=== PATIENT | male | born 1985 | race Caucasian/White ===

== ENCOUNTER 2018-04-20 12:29 | Emergency (ER) | payer OTHER ==
[2018-04-20 12:43] VITALS: BP 119/75
[2018-04-20] MEDS ORDERED: Ibuprofen TAB* 600 MG PO ONE (13:05)
--- NOTE | 2018-04-20 13:19 | UC ---
Minor Trauma HPI - HPI Summary HPI Summary: The patient is a 32-year-old male who fell off a ladder at work today and presents here for evaluation of his injuries. He was no more than 8 feet up on a ladder when he shifted position to pick an apple. The weight of his apple basket shifted and pulled him off the ladder. Fall was broken by multiple limb says he fell to ground. He struck his left face and left shoulder on the ground. He states he may have lost consciousness for less than a second. He has mild nausea. He is denying any midline neck pain however his left trapezius is painful. He is complaining of severe pain over his left scapula as well as severe pain of the left humerus. He has severe pain if he attempts to lift his left arm. Initially the fall it knocked the wind out of him. He currently has no shortness of breath. He is denying any abdominal pain. He denies any injury to his hips pelvis or lower extremities. He states he has had multiple concussions in the past. - History of Current Complaint Chief Complaint: UCHeadInjury Stated Complaint: SHOULDER, BACK ,AND HEAD INJURY Time Seen by Provider: 04/20/18 12:46 Hx Obtained From: Patient Onset/Duration: Sudden Onset, Lasting Minutes Severity Initially: Severe Severity Currently: Moderate Pain Intensity: 8 Pain Scale Used: 0-10 Numeric Mechanism Of Injury: Fall From Height Of: - 8 feet Aggravating Factor(s): Movement Alleviating Factor(s): Rest Associated Signs And Symptoms: Positive: Loss Of Consciousness - possible Related History: Positive: Occupational Injury Body - Head: 1 - tender 2 - tender 3 - bilateral paraspinous muscle tenderness 4 - tender - Allergies/Home Medications Allergies/Adverse Reactions: Allergies Allergy/AdvReac Type Severity Reaction Status Date / Time No Known Allergies Allergy Verified 04/20/18 12:42 PMH/Surg Hx/FS Hx/Imm Hx Previously Healthy: Yes - Surgical History Surgical History: Yes Surgery Procedure, Year, and Place: removal of 2 melanomas. leg surgery ( shattered femur and hip) - Social History Alcohol Use: Weekly Alcohol Amount: twice a week - 6-12 beers Substance Use Type: None Smoking Status (MU): Current Some Day Smoker Type: Cigarettes Amount Used/How Often: 1 cig Length of Time of Smoking/Using Tobacco: 8 years Have You Smoked in the Last Year: Yes Household Exposure Type: Cigarettes Review of Systems Constitutional: Negative Skin: Negative Eyes: Negative ENT: Negative Respiratory: Negative Cardiovascular: Negative Gastrointestinal: Negative Genitourinary: Negative Motor: Negative Neurovascular: Negative Musculoskeletal: Arthralgia, Myalgia Neurological: Negative Psychological: Negative Is Patient Immunocompromised?: No All Other Systems Reviewed And Are Negative: Yes Physical Exam Triage Information Reviewed: Yes Appearance: Well-Appearing, No Pain Distress, Well-Nourished Vital Signs: Initial Vital Signs Temp 97.1 F 04/20/18 12:37 Pulse 60 04/20/18 12:37 Resp 18 04/20/18 12:37 BP 119/75 04/20/18 12:37 Pulse Ox 97 04/20/18 12:37 Vital Signs Reviewed: Yes Eyes: Positive: Conjunctiva Clear ENT: Positive: Hearing grossly normal, Uvula midline. Negative: Nasal congestion, Nasal drainage, Tonsillar swelling, Tonsillar exudate, Trismus, Muffled voice, Hoarse voice, Dental tenderness, Sinus tenderness Dental Exam: Normal - no loose teeth Neck: Positive: Supple, Nontender, No Lymphadenopathy Respiratory: Positive: Lungs clear, Normal breath sounds, No respiratory distress, No accessory muscle use Cardiovascular: Positive: RRR, No Murmur Abdomen Description: Positive: Nontender, No Organomegaly, Soft. Negative: CVA Tenderness (R), CVA Tenderness (L) Bowel Sounds: Positive: Present Musculoskeletal: Positive: ROM Limited @ - left shoulder (unable to abduct Neurological: Positive: Alert Psychological Exam: Normal Skin Exam: Normal Diagnostics - Radiology No standard instances Xray Interpretation: No Acute Changes - CXR/RIBS/L shoulder Radiology Interpretation Completed By: Radiologist Minor Trauma Course/Dx - Differential Dx/Diagnosis Provider Diagnoses: Left shoulder injury? rotator cuff tear. left trapezius strain. concussion. lumbar strain Discharge - Sign-Out/Discharge Documenting (check all that apply): Patient Departure All imaging exams completed and their final reports reviewed: Yes - Discharge Plan Condition: Stable Disposition: HOME Prescriptions: Ibuprofen TAB* [Motrin TAB*] 600 mg PO Q6H PRN #40 tab PRN Reason: Pain Patient Education Materials: Muscle Strain (ED), Rotator Cuff Injury (ED), Concussion (ED), Low Back Strain (ED), Rib Contusion (ED) Forms: *Work Release Referrals: Sam Ledezma MD [Medical Doctor] - ( for evaluation of your left shoulder ? rotator cuff tear) Additional Instructions: rest ice tylenol sling see orthopedist this week about your shoulder please recheck here this weekend for reevaluation of your back strain/ concussion and left trapezius strain recheck here for new symptoms - Billing Disposition and Condition Condition: STABLE Disposition: Home
--- NOTE | 2018-04-20 13:44 | RAD ---
INDICATION: Left rib injury. COMPARISON: Correlation is made with a prior chest x-ray study from November 08, 2016. TECHNIQUE: 2 views of the left ribs and dual-energy PA views of the chest were obtained. FINDINGS: No fracture or significant focal osseous abnormality is seen. The lungs are underinflated and grossly clear. No pleural effusion or pneumothorax is seen. The heart is within normal limits in size. IMPRESSION: NO EVIDENCE FOR FRACTURE.
--- NOTE | 2018-04-20 13:45 | RAD ---
Indication: Tender at the LEFT humerus and scapula following injury. Comparison: November 08, 2016 Technique: Internal rotation AP, external rotation Grashey, scapular Y, axillary views LEFT shoulder REPORT AND IMPRESSION: #. Negative for fracture. Normal acromioclavicular and glenohumeral joint alignment. Minimal inferior acromial bone spur. Unremarkable soft tissue contours.
== END 2018-04-20 14:10 | disposition home or self-care (01) ==
LOC: UCEAST 12:29
CPT/HCPCS: 99213; A9270-GY; G0463

== ENCOUNTER 2018-06-29 14:05 | Emergency (ER) | payer SELFPAY ==
--- OUTSIDE RECORDS SUMMARY | 2018-06-29 14:52 | XMS REPORT ---
:1985 External Reference #:[id number] Author Organization [facility] Address [address] [place] [address] Phone [phone] Care Team Providers Name Role Phone Gerber Leong MD Primary Care Physician Unavailable Payers Type Date Identification Numbers Payment Provider Subscriber Workers Compensation Onset: Policy Number: State Insurance Vito Talbot 2018 [id number] Fund PayID: [id number] [place], [place] [address] Problems Description No Information Family History Date Family Member(s) Problem(s) Comments General Heart Disease General Hypertension General Stroke General Cancer Social History Type Date Description Comments Lives With Alone Occupation [employer] ETOH Use Denies alcohol use Smoking Patient has never smoked Exercise Type/Frequency occasionally Allergies, Adverse Reactions, Alerts Date Description Reaction Status Severity Comments 05/05/2018 NKDA active Medications Medication Date Status Form Strength Qnty SIG Indications Ordering Provider Medrol Active TBPK 4mg 1pak take as Chu Berkowitz 018 directed per MD Cheli dosepak instructions No Active Hx Unknown Medications 018 - 018 Vital Signs Date Vital Result Comment 06/02/2018 Heart Rate 84 /min BP Systolic 128 mmHg BP Diastolic 82 mmHg Respiratory Rate 16 /min Pain Level 5 05/05/2018 Height 67 inches 5'7" Weight 168.00 lb Heart Rate 68 /min BP Systolic 120 mmHg BP Diastolic 88 mmHg Body Temperature 97.5 F Pain Level 6 BMI (Body Mass Index) 26.3 kg/m2 Results Description No Information Procedures Description No Information Encounters Type Date Location Provider CPT E/M Dx Office Visit 05/05/2018 [facility] Bower [address] M25.512 2:15p [facility] S46.012A W14.xxxA M25.512 Plan of Care Future Appointment(s):07/02/2018 2:00 pm - Chu Bower MD at [facility]06/02/2018 - Chu Bower, MDM25.512 Pain in left shoulderNew Therapy:Physical TherapyFollow up:Follow up: 4 hicnfP68.012D Contusion of left shoulder, subsequent encounter
[2018-06-29 15:37] LABS: ABS Basophils 0 10^3/ul (0-0.2); ABS Eosinophils 0.1 10^3/ul (0-0.6); ABS Lymphocytes 2.1 10^3/ul (1.0-4.8); ABS Monocytes 0.7 10^3/ul (0-0.8); ABS Neutrophils 5.4 10^3/ul (1.5-7.7); ABS Nucleated RBC 0 10^3/ul; Eosinophil % 1.4 %; Hematocrit 43 % (42-52); Hemoglobin 14.4 g/dl (14.0-18.0); Lymphocyte % 25.3 %; Mean Corpuscular HGB Conc 34 g/dl (31-36); Mean Corpuscular Hemoglobin 31 pg (27-31); Mean Corpuscular Volume 92 fL (80-94); Mean Platelet Volume 8.2 fL (7.4-10.4); Nucleated Red Blood Cells % 0.1; Platelet Count 291 10^3/ul (150-450); Red Blood Count 4.63 10^6/ul (4.00-5.40); Red Cell Distribution Width 13 % (10.5-15); White Blood Count 8.4 10^3/ul (3.5-10.8)
[2018-06-29 15:53] LABS: EGFR Non-African American 83.6 (>60)
--- NOTE | 2018-06-29 16:54 | ED ---
HPI Chest Pain - HPI Summary HPI Summary: Patient is a 32-year-old male presenting to the ED with a 2 day history of chest pressure to the midsternal region which is nonradiating. He is also endorsing SOB which is worse with exertion. He has never had anything like this before. Denies any cardiac history. Patient endorses smoking history and recent increased alcohol intake. Denies any PMH of cardiac issues, endorses family history of grandmother on mother's passing away from an PR at age 50s. He states he is otherwise healthy. He denies any chest congestion, cough, urinary symptoms, back pain, sinus tenderness or headache. He states this was a gradual onset. He denies any bilateral arm pain, numbness or tingling. He denies any fevers, sweats, chills. He does however endorses recent illness of a cough and congestion, but this has resolved. He has not taken anything over- the-counter for relief. - History of Current Complaint Chief Complaint: EDChestWallPain Time Seen by Provider: 06/29/18 14:24 Hx Obtained From: Patient Onset/Duration: Started Days Ago Timing: Constant Initial Severity: Moderate Current Severity: Moderate Pain Intensity: 6 Pain Scale Used: 0-10 Numeric Chest Pain Location: Mid Sternal Chest Pain Radiates: No Character: Dull/Aching Aggravating Factor(s): Exertion Alleviating Factor(s): Rest Associated Signs and Symptoms: Positive: Negative - Risk Factors Pulmonary Embolism Risk Factors: Previous PE, Smoking TAD Risk Factors: Smoking AMI/ACS Risk Factors: Smoking - Allergy/Home Medications Allergies/Adverse Reactions: Allergies Allergy/AdvReac Type Severity Reaction Status Date / Time No Known Allergies Allergy Verified 05/12/18 09:57 PMH/Surg Hx/FS Hx/Imm Hx Previously Healthy: Yes Endocrine/Hematology History: Denies: Hx Diabetes, Hx Thyroid Disease Cardiovascular History: Reports: Hx Hypertension - NOT TAKING HIS PRESCRIBED MEDS Denies: Hx Pacemaker/ICD Respiratory History: Denies: Hx Asthma, Hx Chronic Obstructive Pulmonary Disease (COPD) GI History: Denies: Hx Ulcer Sensory History: Denies: Hx Hearing Aid Psychiatric History: Denies: Hx Panic Disorder - Cancer History Cancer Type, 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 leg surgery ( shattered femur and hip). HERNIA REPAIR - Immunization History Hx Pertussis Vaccination: No Immunizations Up to Date: Yes Infectious Disease History: No Infectious Disease History: Denies: Hx Hepatitis, Hx Human Immunodeficiency Virus (HIV), Traveled Outside the [place] in Last 30 Days - Social History Occupation: Employed Full-time Lives: With Family Alcohol Use: Weekly Alcohol Amount: twice a week - 6-12 beers Hx Substance Use: No Substance Use Type: Reports: None Hx Tobacco Use: Yes Smoking Status (MU): Current Some Day Smoker Type: Cigarettes Amount Used/How Often: 1 cig Length of Time of Smoking/Using Tobacco: 8 years Have You Smoked in the Last Year: Yes Review of Systems Negative: Fever, Chills, Fatigue, Skin Diaphoresis Positive: Chest Pain. Negative: Palpitations Positive: Shortness Of Breath. Negative: Cough Negative: Abdominal Pain, Vomiting, Diarrhea Genitourinary: Negative Positive: no symptoms reported, see HPI Negative: Arthralgia, Myalgia Skin: Negative Neurological: Negative All Other Systems Reviewed And Are Negative: Yes Physical Exam Triage Information Reviewed: Yes Vital Signs On Initial Exam: Initial Vitals Temp Pulse Resp BP Pulse Ox 98.2 F 89 18 123/86 97 06/29/18 14:12 06/29/18 14:12 06/29/18 14:12 06/29/18 14:12 06/29/18 14:12 Vital Signs Reviewed: Yes Appearance: Positive: Well-Appearing, Well-Nourished Skin: Positive: Warm, Skin Color Reflects Adequate Perfusion Head/Face: Positive: Normal Head/Face Inspection Eyes: Positive: EOMI, JUDE, Conjunctiva Clear Neck: Positive: Supple, No Lymphadenopathy Respiratory/Lung Sounds: Positive: Clear to Auscultation, Breath Sounds Present Cardiovascular: Positive: RRR, Pulses are Symmetrical in both Upper and Lower Extremities Musculoskeletal: Positive: Normal, Strength/ROM Intact Neurological: Positive: Speech Normal Psychiatric: Positive: Normal, Affect/Mood Appropriate AVPU Assessment: Alert Diagnostics - Vital Signs Vital Signs Temp Pulse Resp BP Pulse Ox 06/29/18 15:02 83 14 132/95 97 06/29/18 15:00 82 23 97 06/29/18 14:31 81 17 144/77 97 06/29/18 14:12 98.2 F 89 18 123/86 97 - Laboratory Lab Results: Lab Results 06/29/18 06/29/18 06/29/18 Range/Units 15:18 15:18 15:18 WBC 8.4 (3.5-10.8) 10^3/ul RBC 4.63 (4.00-5.40) 10^6/ul Hgb 14.4 (14.0-18.0) g/dl Hct 43 (42-52) % MCV 92 (80-94) fL MCH 31 (27-31) pg MCHC 34 (31-36) g/dl RDW 13 (10.5-15) % Plt Count 291 (150-450) 10^3/ul MPV 8.2 (7.4-10.4) fL Neut % (Auto) 64.7 % Lymph % (Auto) 25.3 % [place] % (Auto) 8.3 % Eos % (Auto) 1.4 % Baso % (Auto) 0.3 % Absolute Neuts (auto) 5.4 (1.5-7.7) 10^3/ul Absolute Lymphs (auto) 2.1 (1.0-4.8) 10^3/ul Absolute Monos (auto) 0.7 (0-0.8) 10^3/ul Absolute Eos (auto) 0.1 (0-0.6) 10^3/ul Absolute Basos (auto) 0 (0-0.2) 10^3/ul Absolute Nucleated RBC 0 10^3/ul Nucleated RBC % 0.1 Sodium 139 (135-145) mmol/L Potassium 4.4 (3.5-5.0) mmol/L Chloride 106 (101-111) mmol/L Carbon Dioxide 29 (22-32) mmol/L Anion Gap 4 (2-11) mmol/L BUN 13 (6-24) mg/dL Creatinine 1.02 (0.67-1.17) mg/dL Est GFR ( Amer) 101.2 (>60) Est GFR (Non-Af Amer) 83.6 (>60) BUN/Creatinine Ratio 12.7 (8-20) Glucose 92 (70-100) mg/dL Lactic Acid 1.4 (0.5-2.0) mmol/L Calcium 8.9 (8.6-10.3) mg/dL Magnesium 1.7 L (1.9-2.7) mg/dL Total Bilirubin 0.30 (0.2-1.0) mg/dL AST 47 H (13-39) U/L ALT 62 H (7-52) U/L Alkaline Phosphatase 68 (34-104) U/L CK-MB (CK-2) 1.0 (0.6-6.3) ng/mL Troponin I 0.00 (<0.04) ng/mL Total Protein 6.0 L (6.4-8.9) g/dL Albumin 3.8 (3.2-5.2) g/dL Globulin 2.2 (2-4) g/dL Albumin/Globulin Ratio 1.7 (1-3) Result Diagrams: 06/29/18 15:18 06/29/18 15:18 Lab Statement: Any lab studies that have been ordered have been reviewed, and results considered in the medical decision making process. Chest Pain Course/Dx - Course Course Of Treatment: On arrival, patient's vital signs are stable. On physical examination, patient is nondiaphoretic, nontoxic in appearing and appears well. He does have a history of anxiety and states he is fairly anxious when coming to hospitals. Lungs CTA. RRR. Chest x-ray obtained which shows slightly lower lung volumes than normal. He will follow up with PCP/[facility] if symptoms continue or worsen, but likely this is secondary to patient decreased work of breathing deep d/t discomfort. D-dimer negative. - Chest Pain Differential Diagnosis/HQI/PQRI: Chest Wall, Pulmonary Embolism - Diagnoses Provider Diagnoses: Atypical chest pain, Shortness of breath Discharge - Sign-Out/Discharge Documenting (check all that apply): Patient Departure - Discharge Plan Condition: Stable Disposition: HOME Patient Education Materials: Chest Pain (ED) Forms: *Work Release Referrals: Gerber Leong MD [Primary Care Provider] - Additional Instructions: Ibpurofen 600mg three times daily Rest If you develop any worsening symptoms, return to the ED Do not drink or smoke until you feel better - do not smoke anyway! - Billing Disposition and Condition Condition: STABLE Disposition: Home
[2018-06-29 17:16] VITALS: BP 136/66
== END 2018-06-29 17:15 | disposition home or self-care (01) ==
LOC: ED 14:05
DX: R07.89 Other chest pain (principal); R06.02 Shortness of breath; F17.210 Nicotine dependence, cigarettes, uncomplicated; I10 Essential (primary) hypertension; Z85.820 Personal history of malignant melanoma of skin; Z82.49 Family history of ischemic heart disease and other diseases of the circulatory system
CPT/HCPCS: 36415; 71046; 80053; 82553; 83605; 83735; 84484; 85025; 85379; 93005; 99282

== ENCOUNTER 2018-12-12 14:11 | Emergency (ER) | payer SELFPAY ==
[2018-12-12] MEDS ORDERED: HYDROcodone/ACETAMIN 5-325 MG* 1 TAB PO ONE (14:57)
--- NOTE | 2018-12-12 14:57 | UC ---
Lower Extremity/Ankle HPI - HPI Summary HPI Summary: about 2 weeks ago twisted right ankle on a log---[facility]--Pain continues in top of right foot just proximal to 2/3 metatarsal --pain has kept him awake for the past 4 nights-foot remained swollen - History of Current Complaint Chief Complaint: UCLowerExtremity Stated Complaint: LEG PAIN Time Seen by Provider: 12/12/18 14:40 Hx Obtained From: Patient Onset/Duration: Sudden Onset, Lasting Weeks - 2, Still Present Severity Initially: Moderate Severity Currently: Moderate Pain Intensity: 8 Pain Scale Used: 0-10 Numeric Aggravating Factor(s): Standing, Ambulation Alleviating Factor(s): Nothing Able to Bear Weight: Yes - Allergies/Home Medications Allergies/Adverse Reactions: Allergies Allergy/AdvReac Type Severity Reaction Status Date / Time No Known Allergies Allergy Verified 12/12/18 14:30 Home Medications: Home Medications Acetaminophen 3 tab PO ONCE PRN 12/12/18 [History Confirmed 12/12/18] Cholecalciferol TAB* [Vitamin D TAB*] 1,000 unit PO DAILY 12/12/18 [History Confirmed 12/12/18] Multivitamin [Multivitamins] 1 cap PO DAILY 12/12/18 [History Confirmed 12/12/18 ] PMH/Surg Hx/FS Hx/Imm Hx Previously Healthy: Yes - Surgical History Surgical History: Yes Surgery Procedure, Year, and Place: removal of 2 melanomas. right leg surgery ( shattered femur and hip). HERNIA REPAIR - right - Family History Known Family History: Negative: Hypertension - Social History Lives: With Family Alcohol Use: None Alcohol Amount: twice a week - 6-12 beers Substance Use Type: None Smoking Status (MU): Current Some Day Smoker Type: Cigarettes Amount Used/How Often: 1 cig Length of Time of Smoking/Using Tobacco: 8 years Have You Smoked in the Last Year: Yes Household Exposure Type: Cigarettes Review of Systems All Other Systems Reviewed And Are Negative: Yes Constitutional: Positive: Negative Skin: Positive: Bruising - right foot Eyes: Positive: Negative ENT: Positive: Negative Respiratory: Positive: Negative Cardiovascular: Positive: Negative Gastrointestinal: Positive: Negative Genitourinary: Positive: Negative Motor: Positive: Negative Musculoskeletal: Positive: Arthralgia - mid right foot, Edema - right foot Neurological: Positive: Negative Psychological: Positive: Negative Is Patient Immunocompromised?: No Physical Exam Triage Information Reviewed: Yes Appearance: Well-Appearing, Well-Nourished, Pain Distress Vital Signs: Initial Vital Signs Temp 97.5 F 12/12/18 14:25 Pulse 73 12/12/18 14:25 Resp 14 12/12/18 14:25 BP 122/71 12/12/18 14:25 Pulse Ox 98 12/12/18 14:25 Vital Signs Reviewed: Yes Eye Exam: Normal Eyes: Positive: Conjunctiva Clear ENT Exam: Normal ENT: Positive: Normal ENT inspection, Hearing grossly normal. Negative: Trismus , Muffled voice, Hoarse voice Dental Exam: Normal Neck exam: Normal Neck: Positive: Supple, Nontender, No Lymphadenopathy Respiratory Exam: Normal Respiratory: Positive: Chest non-tender, No respiratory distress, No accessory muscle use Cardiovascular Exam: Normal Cardiovascular: Positive: RRR, No Murmur, Pulses Normal, Brisk Capillary Refill Musculoskeletal Exam: Other - right foot Musculoskeletal: Positive: ROM Limited @, Edema @ Neurological Exam: Normal Neurological: Positive: Alert, Muscle Tone Normal Psychological Exam: Normal Psychological: Positive: Normal Response To Family Skin Exam: Normal Diagnostics - Radiology No standard instances Radiology Interpretation Completed By: Radiologist Summary of Radiographic Findings: lateral cuneiform non displaced fx right foot Lower Extremity Course/Dx - Course Course Of Treatment: rice, pain control, crutches, cam boot,follow with orthopedic doctor this week - Differential Dx/Diagnosis Provider Diagnosis: Fx cuneiform, foot-closed Discharge - Sign-Out/Discharge Documenting (check all that apply): Patient Departure All imaging exams completed and their final reports reviewed: Yes - Discharge Plan Condition: Stable Disposition: HOME Prescriptions: Hydrocodone/Acetaminophen [Hydrocodone-Acetamin 5-325 mg] 1 each PO Q6HR PRN # 10 tablet MDD 4 PRN Reason: Pain - Unrelieved Ibuprofen [Ibu] 800 mg PO Q8HR PRN #40 tablet PRN Reason: Pain Patient Education Materials: Crutch Instructions (ED), Foot Fracture in Adults (ED), R.I.C.E. Treatment (ED) Referrals: Sam Schwartz MD [Medical Doctor] - 2 Days - Billing Disposition and Condition Condition: STABLE Disposition: Home
[2018-12-12 16:37] VITALS: BP 128/81
== END 2018-12-12 16:59 | disposition home or self-care (01) ==
LOC: UCEAST 14:11
DX: S99.921A Unspecified injury of right foot, initial encounter (principal); S90.31XA Contusion of right foot, initial encounter; X50.1XXA Overexertion from prolonged static or awkward postures, initial encounter; Y92.9 Unspecified place or not applicable; Z72.0 Tobacco use
CPT/HCPCS: 99213; G0463

== ENCOUNTER 2019-01-11 17:18 | Emergency (ER) | payer OTHER ==
--- OUTSIDE RECORDS SUMMARY | 2019-01-11 17:33 | XMS REPORT | Continuity of Care Document ---
:1985 External Reference #:[id number] Author Name Mariana Burton Care Team Providers Name Role Phone Gerber Leong MD Primary Care Physician Unavailable Payers Date Identification Numbers Payment Provider Subscriber Onset: 2018 Policy Number: [id number] State Insurance Fund Vito Talbot [place]: [id number] [place] [address] Policy Number: [id number] Va/ Non Va Care Vito Talbot PayID: [id number] [address] [address] [place] [address] Family History Date Family Member(s) Observation Comments General Heart Disease General Hypertension General Stroke General Cancer Social History Type Date Description Comments Sex Unknown Lives With Alone Occupation [employer] ETOH Use Denies alcohol use Tobacco Use Start: Unknown Patient has never smoked Smoking Status Reviewed: 05/05/18 Patient has never smoked Exercise Type/Frequency occasionally Allergies, Adverse Reactions, Alerts Description No Known Drug Allergies Medications Active Medications SIG Qnty Indications Ordering Provider Date Tramadol HCL 1 tablets every 14tabs S86.111A Oswaldo Cash MD 12/25/2018 50mg 12 hours as Tablets needed History Medications No Active Medications Unknown 12/25/2018 - 12/25/2018 Medrol take as directed per 1pfeliberto Berkowitz 06/02/2018 - 4mg TBPK dosepak karolyn Bower MD 12/24/2018 No Active Medications Unknown 05/05/2018 - 06/02/2018 Vital Signs Date Vital Result Comment 12/25/2018 3:17pm Height 67 inches 5'7" Weight 170.00 lb Heart Rate 100 /min BP Systolic 124 mmHg BP Diastolic 80 mmHg Respiratory Rate 16 /min Body Temperature 98.4 F Pain Level 8 BMI (Body Mass Index) 26.6 kg/m2 06/02/2018 1:46pm Heart Rate 84 /min BP Systolic 128 mmHg BP Diastolic 82 mmHg Respiratory Rate 16 /min Pain Level 5 05/05/2018 2:21pm Height 67 inches 5'7" Weight 168.00 lb Heart Rate 68 /min BP Systolic 120 mmHg BP Diastolic 88 mmHg Body Temperature 97.5 F Pain Level 6 BMI (Body Mass Index) 26.3 kg/m2 Encounters Type Date Location Provider Dx Diagnosis Office Visit 06/02/2018 [facility] Chu Berkowitz M25.512 Pain in left 2:00p [facility] MD shoulder S40.012D Contusion of left shoulder, subsequent encounter M25.512 Pain in left shoulder Office Visit 05/05/2018 2:15p [facility]opedic Chu Berkowitz M25.512 Pain in left Services Of MD Cheli shoulder [facility] S46.012A Strain of musc/tend the rotator cuff of left shoulder, init W14.xxxA Fall from tree, initial encounter M25.512 Pain in left shoulder Plan of Treatment 12/25/2018 - Oswaldo Cash, MDS86.111A Strain of other muscle(s) and tendon(s) of posterior muscleNew Medication:Tramadol HCL 50 mg - 1 tablets every 12 hours as neededFollow up:after testing / imaging is completed
--- OUTSIDE RECORDS SUMMARY | 2019-01-11 17:33 | XMS REPORT | Continuity of Care Document ---
:1985 External Reference #:[id number] Author Name Mariana Burton Care Team Providers Name Role Phone Gerber Leong MD Primary Care Physician Unavailable Payers Date Identification Numbers Payment Provider Subscriber Effective: 2018 Policy Number: [id number] Va/ Non Va Care Vito Talbot Expires: 2019 PayID: [id number] [address] [address] [place] [address] Onset: 2018 Policy Number: [id number] [facility] Insurance Fund Vito Talbot PayID: [id number] [place] [address] Problems Active Problems Provider Date Other specified congenital deformities of feet Oswaldo Cash MD Onset: 01/04 Complex regional pain syndrome type I of right Oswaldo Cash MD Onset: 01/04 lower limb Family History Date Family Member(s) Observation Comments General Heart Disease General Hypertension General Stroke General Cancer Social History Type Date Description Comments Sex Unknown Lives With Alone Occupation [employer] ETOH Use Denies alcohol use Tobacco Use Start: Unknown Patient has never smoked Smoking Status Reviewed: 01/04/19 Patient has never smoked Exercise Type/Frequency occasionally Allergies, Adverse Reactions, Alerts Description No Known Drug Allergies Medications Active Medications SIG Qnty Indications Ordering Provider Date Gabapentin 1 tablet by mouth 60caps Oswaldo Cash MD 01/04/2019 300mg qd x 2 weeks. Capsules Increase to 2 qd if pain is not improving. Tramadol HCL 1 tablets every 30tabs S86.111A Oswaldo Cash MD 12/25/2018 50mg 12 hours as Tablets needed History Medications No Active Medications Unknown 12/25/2018 - 12/25/2018 Medrol take as directed per hiral Berkowitz 06/02/2018 - 4mg TBPK dosepak instructions MD Cheli 12/24/2018 No Active Medications Unknown 05/05/2018 - 06/02/2018 Vital Signs Date Vital Result Comment 01/04/2019 1:40pm Height 67 inches 5'7" Weight 170.00 lb Heart Rate 98 /min Respiratory Rate 16 /min Body Temperature 95.1 F Pain Level 8 BMI (Body Mass Index) 26.6 kg/m2 12/25/2018 3:17pm Height 67 inches 5'7" Weight [...] in left Services Of MD Cheli shoulder C.M.A. S46.012A Strain of musc/tend the rotator cuff of left shoulder, init W14.xxxA Fall from tree, initial encounter M25.512 Pain in left shoulder Plan of Treatment Future Appointment(s):02/01/2019 10:00 am - Oswaldo Cash MD at [facility]01/04/2019 - Oswaldo Cash MDQ66.89 Other specified congenital deformities of feetG90.521 Complex regional pain syndrome I of right lower limbNew Therapy:Physical TherapyFollow up:Follow Up: 4 weeks
--- NOTE | 2019-01-11 20:39 | ED ---
Lower Extremity - HPI Summary HPI Summary: 33-year-old male presents with right foot swelling since yesterday. He states that he has a fracture to his foot diagnosed a month ago. He states that he is not really suppose to be walking that much and yesterday he walked on it and also swam. He knows increased swelling and some black and blue to his foot yesterday that has resolved. He's noticed increased swelling. He is also has swelling and pain into his leg on the right side. He denies any history of blood clots. Is not a smoker. No chest pain or shortness breath. No new injury. - History of Current Complaint Chief Complaint: EDExtremityLower Stated Complaint: POSSIBLE EDEMA PER PT Time Seen by Provider: 01/11/19 18:12 Pain Intensity: 7 - Allergies/Home Medications Allergies/Adverse Reactions: Allergies Allergy/AdvReac Type Severity Reaction Status Date / Time No Known Allergies Allergy Verified 12/31/18 14:35 PMH/Surg Hx/FS Hx/Imm Hx Endocrine/Hematology History: Denies: Hx Diabetes, Hx Thyroid Disease Cardiovascular History: Reports: Hx Hypertension Denies: Hx Pacemaker/ICD Respiratory History: Denies: Hx Asthma, Hx Chronic Obstructive Pulmonary Disease (COPD) GI History: Denies: Hx Ulcer History: Denies: Hx Dialysis, Hx Renal Disease Sensory History: Denies: Hx Hearing Aid Psychiatric History: Reports: Hx Anxiety, Hx Depression Denies: Hx Panic Disorder - Cancer History Cancer Type, Location and Year: melanoma x 2 - removed surgically, no treatment needed - Surgical History Surgery Procedure, Year, and Place: removal of 2 melanomas. right leg surgery ( shattered femur and hip) W/ [facility] (HIP TO KNEE). HERNIA REPAIR - right Infectious Disease History: No Infectious Disease History: Denies: Hx Hepatitis, Hx Human Immunodeficiency Virus (HIV), Traveled Outside the [place] in Last 30 Days - Family History Known Family History: Negative: Hypertension - Social History Alcohol Use: None Alcohol Amount: twice a week - 6-12 beers Hx Substance Use: No Substance Use Type: Reports: None Hx Tobacco Use: Yes Smoking Status (MU): Current Some Day Smoker Type: Cigarettes Amount Used/How Often: 1 cig Length of Time of Smoking/Using Tobacco: 8 years Have You Smoked in the Last Year: Yes Review of Systems Negative: Fever Negative: Chest Pain Negative: Shortness Of Breath Positive: Myalgia - right foot and calf pain, Edema All Other Systems Reviewed And Are Negative: Yes Physical Exam Triage Information Reviewed: Yes Vital Signs On Initial Exam: Initial Vitals Temp Pulse Resp BP Pulse Ox 99.1 F 94 18 125/89 97 01/11/19 17:22 01/11/19 17:22 01/11/19 17:22 01/11/19 17:22 01/11/19 17:22 Vital Signs Reviewed: Yes Appearance: Positive: Well-Appearing Skin: Positive: Warm, Dry Head/Face: Positive: Normal Head/Face Inspection Eyes: Positive: Normal, Conjunctiva Clear ENT: Positive: Pharynx normal Respiratory/Lung Sounds: Positive: Clear to Auscultation, Breath Sounds Present Cardiovascular: Positive: Normal, RRR Musculoskeletal: Positive: Strength/ROM Intact - right foot, Edema Right - foot , Other - good pulses, tenderness right calf, capillary refill<2 secs Neurological: Positive: Normal Psychiatric: Positive: Normal Diagnostics - Vital Signs Vital Signs Temp Pulse Resp BP Pulse Ox 01/11/19 17:22 99.1 F 94 18 125/89 97 - Laboratory Lab Statement: Any lab studies that have been ordered have been reviewed, and results considered in the medical decision making process. - Ultrasound No standard instances Ultrasound Interpretation Completed By: Radiologist Summary of Ultrasound Findings: IMPRESSION: No right extremity deep vein thrombosis. Lower Extremity Course/Dx - Course Course Of Treatment: 33-year-old male presents with right foot swelling since yesterday. He states that he has a fracture to his foot diagnosed a month ago. He states that he is not really suppose to be walking that much and yesterday he walked on it and also swam. He knows increased swelling and some black and blue to his foot yesterday that has resolved. He's noticed increased swelling. He is also has swelling and pain into his leg on the right side. He denies any history of blood clots. Is not a smoker. No chest pain or shortness breath. No new injury. On exam has edema noted to right foot. Neurovascular intact. Ultrasound negative for DVT. Told to ice and elevate and follow-up with orthopedic. Patient understands agrees plan. - Diagnoses Differential Diagnosis/HQI/PQRI: Positive: Contusion, Fracture (Closed), Sprain Provider Diagnoses: Edema of right foot Discharge - Sign-Out/Discharge Documenting (check all that apply): Patient Departure Patient Received Moderate/Deep Sedation with Procedure: No - Discharge Plan Condition: Good Disposition: HOME Patient Education Materials: R.I.C.E. Treatment (ED) Referrals: Gerber Leong MD [Primary Care Provider] - Additional Instructions: Take Tylenol or ibuprofen every 6 hours as needed for pain Apply ice, rest, elevate keep boot on area Follow up with ortho Return to ED if develop any new or worsening symptoms - Billing Disposition and Condition Condition: GOOD Disposition: Home
[2019-01-11 20:59] VITALS: BP 147/86
== END 2019-01-11 20:58 | disposition home or self-care (01) ==
LOC: ED 17:18
DX: R60.0 Localized edema (principal); Z72.0 Tobacco use
CPT/HCPCS: 99282

== ENCOUNTER 2019-05-13 09:18 | Emergency (ER) | payer OTHER ==
--- OUTSIDE RECORDS SUMMARY | 2019-05-13 09:24 | XMS REPORT | Continuity of Care Document ---
:1985 External Reference #:[id number] Author Name Oswaldo Cash MD (transmitted by agent of provider Mariana Burton) Address [address] [place] [id number] Care Team Providers Name Role Phone Gerber Leong MD - Emergency Care Team Information Medical Accounting Clerk [phone] Medicine Problems Active Problems Provider Date Other synovitis and tenosynovitis, right ankle Oswaldo Cash MD Onset: 03/16 and foot Other specified congenital deformities of feet Oswaldo Cash MD Onset: 01/04 Complex regional pain syndrome type I of right Oswaldo Cash MD Onset: 01/04 lower limb Social History Type Date Description Comments Sex Unknown ETOH Use Denies alcohol use Tobacco Use Start: Unknown Patient has never smoked Smoking Status Reviewed: 03/16/19 Patient has never smoked Exercise Type/Frequency occasionally [...] No Active Medications Unknown 12/25/2018 - 12/25/2018 Immunizations Description No Information Available Vital Signs Date Vital Result Comment 03/16/2019 9:24am Height 67 inches 5'7" Weight 170.00 lb Heart Rate 56 /min Respiratory Rate 15 /min Body Temperature 97.7 F Pain Level 5 BMI (Body Mass Index) 26.6 kg/m2 02/01/2019 9:57am Height 67 inches 5'7" Weight 170.00 lb Heart Rate 88 /min BP Systolic 130 mmHg BP Diastolic 70 mmHg Body Temperature 98.5 F Pain Level 7 BMI (Body Mass Index) 26.6 kg/m2 Results Description No Information Available Procedures Description No Information Available Medical Devices Description No Information Available Encounters Type Date Location Provider Dx Diagnosis Office Visit 02/01/2019 Orthopedic Oswaldo Cash, G90.521 Complex regional 10:00a [facility] Of [facility] [place] pain syndrome I of right lower limb Q66.89 Other specified congenital deformities of feet S86.111A Strain musc/tend post grp at low leg level, right leg, init M25.571 Pain in right ankle and joints of right foot M25.471 Effusion, right ankle Office Visit 01/04/2019 1:45p Latrice Cash Q66.89 Other specified Services Of congenital Shireen deformities of feet G90.521 Complex regional pain syndrome I of right lower limb Office Visit 12/25/2018 3:00p Latrice Cash S86.111A Strain Services Of MD arteaga/tend post Shireen grp at low leg level, right leg, init M25.571 Pain in right ankle and joints of right foot M25.471 Effusion, right ankle Assessments Date Code Description Provider 03/16/2019 G90.521 Complex regional pain syndrome I of right lower Oswaldo Cash MD limb 03/16/2019 Q66.89 Other specified congenital deformities of feet Oswaldo Cash MD 03/16/2019 M65.871 Other synovitis and tenosynovitis, right ankle Oswaldo Cash MD and foot 02/01/2019 G90.521 Complex regional pain syndrome I of right lower Oswaldo Cash MD limb 02/01/2019 Q66.89 Other specified congenital deformities of feet Oswaldo Cash MD 02/01/2019 S86.111A Strain of other muscle(s) and tendon(s) of Oswaldo Cash MD posterior muscle 02/01/2019 M25.571 Pain in right ankle and joints of right foot Oswaldo Cash MD 02/01/2019 M25.471 Effusion, right ankle Oswaldo Cash MD 01/04/2019 Q66.89 Other specified congenital deformities of feet Oswaldo Cash MD 01/04/2019 G90.521 Complex regional pain syndrome I of right lower Oswaldo Cash MD limb 12/25/2018 S86.111A Strain of other muscle(s) and tendon(s) of Oswaldo Cash MD posterior muscle 12/25/2018 M25.571 Pain in right ankle and joints of right foot Oswaldo Cash MD 12/25/2018 M25.471 Effusion, right ankle Oswaldo Cash MD Plan of Treatment Future Appointment(s):04/30/2019 2:00 pm - Oswal[facility] MD at [facility]03/16/2019 - Oswaldo Cash MDG90.521 Complex regional pain syndrome I of right lower limbNew Xrays:Inj/Aspir, Intermediate Joint/Bursa W/ US, Ordered: 03/16/19Referral:Lorie St MD, Pain Management-anesthesiFollow up: Follow Up: 2 dwtnapK42.89 Other specified congenital deformities of feetM65.871 Other synovitis and tenosynovitis, right ankle and foot Functional Status Description No Information Available Mental Status Description No Information Available Referrals Refer to Dr Reason for Referral Status Appt Date Lorie St MD RLE CRPS Created [address] [place] [phone] MD c/f Right foot CRPS Scheduled 03/09/2019 [address] [place] [phone] Sam Schwartz MD Created [address] [place] [address] [address] [employer] [employer] [phone]
--- OUTSIDE RECORDS SUMMARY | 2019-05-13 09:24 | XMS REPORT | Continuity of Care Document ---
:1985 External Reference #:[id number] Author Name Oswaldo Cash MD (transmitted by agent of provider Miriam Ribeiro) Address [address] [place] [id number] Care Team Providers Name Role Phone Gerber Leong MD - Emergency Care Team Information Dry Can Tender [phone] Medicine Problems Active Problems Provider Date Other [...] Patient has never smoked Smoking Status Reviewed: 04/30/19 Patient has never smoked Exercise Type/Frequency occasionally Allergies, Adverse Reactions, Alerts Description No Known Drug Allergies Medications Active Medications SIG Qnty Indications Ordering Provider Date No Active Medications Unknown 04/30/2019 History Medications Gabapentin 1 tablet by mouth 60caps Oswaldo Cash, 01/04/2019 - 300mg qd x 2 weeks. 04/29/2019 Capsules Increase to 2 qd if pain is not improving. No Active Unknown 12/25/2018 - Medications 12/25/2018 Tramadol HCL 1 tablets every 12 30tabs S86.111A Oswaldo Cash, 12/25/2018 - 50mg hours as needed 04/29/2019 Tablets Medications Administered in Office Medication SIG Qnty Indications Ordering Provider Date Triamcinolone (Kenalog) Oswaldo Cash MD 03/16/2019 Injection Immunizations Description No Information Available Vital Signs Date Vital Result Comment 04/30/2019 2:13pm Height 67 inches 5'7" Weight 160.00 lb Heart Rate 120 /min BP Systolic 120 mmHg BP Diastolic 78 mmHg Body Temperature 99.0 F Pain Level 5 BMI (Body Mass Index) 25.1 kg/m2 03/16/2019 9:24am Height 67 inches 5'7" Weight 170.00 lb Heart Rate 56 /min Respiratory Rate 15 /min Body Temperature 97.7 F Pain Level 5 BMI (Body Mass Index) 26.6 kg/m2 Results Description No Information Available Procedures Date Code Description Status 03/16/2019 43254 Inj/Aspir, Intermediate Joint/Bursa W/ US Completed Medical Devices Description No Information Available Encounters Type Date Location Provider Dx Diagnosis Office Visit 03/16/2019 [facility] G90.521 Complex regional 9:30a at [place] pain syndrome I of right lower limb Q66.89 Other specified congenital deformities of feet M65.871 Other synovitis and tenosynovitis, right ankle and foot M25.571 Pain in right ankle and joints of right foot M25.471 Effusion, right ankle [facility] G90.[facility] at [place] regional pain syndrome I of right lower limb Q66.89 Other specified congenital deformities of feet S86.111A Strain musc/tend post grp at low leg level, right leg, init M25.571 Pain in right ankle and joints of right foot M25.471 Effusion, right ankle Office Visit 01/04/2019 Monica Cash, Q66.89 Other specified 1:45p Orthopedics at congenital [place] deformities of feet G90.521 Complex regional pain syndrome I of right lower limb Office Visit 12/25/2018 Monica Cash S86.111A Strain 3:00p Orthopedics at musc/tend post [place] grp at low leg level, right leg, init M25.571 Pain in right ankle and joints of right foot M25.471 Effusion, right ankle Assessments Date Code Description Provider 04/30/2019 G90.521 Complex regional pain syndrome I of right lower Oswaldo Cash MD limb 03/16/2019 G90.521 Complex regional pain syndrome I of right lower Oswaldo Cash MD limb 03/16/2019 Q66.89 Other specified congenital deformities of feet Oswaldo Cash MD 03/16/2019 M65.871 Other synovitis and tenosynovitis, right ankle Oswaldo Cash MD and foot 03/16/2019 M25.571 Pain in right ankle and joints of right foot Oswaldo Cash MD 03/16/2019 M25.471 Effusion, right ankle Oswaldo Cash MD 02/01/2019 G90.521 Complex regional pain syndrome I [...] ankle Oswaldo Cash MD Plan of Treatment 04/30/2019 - Oswaldo Cash MDG90.521 Complex regional pain syndrome I of right lower limbFollow up:Follow Up: As needed Functional Status Description No Information Available Mental Status Description No Information Available Referrals Refer to Reason for Referral Status Appt Date Lorie St MD RLE CRPS Sent [address] [place] [phone] MD c/f Right foot CRPS Scheduled 03/09/2019 [address] [place] [phone] Sam Schwartz MD Created [address] [place] [address] [place] [phone]
[2019-05-13 09:32] VITALS: BP 105/55
--- NOTE | 2019-05-13 10:17 | UC ---
Eye Complaint HPI - HPI Summary HPI Summary: 33 yo male presents with RIGHT eye complaint. He tells me that yesterday he noticed some right eye redness, itching, and yellow drainage. He thought it was allergies and took OTC allergy medication with no relief. This morning he woke up and his right eye was swollen and crusted shut with yellow crusting and drainage. He wears glasses, but no contacts. He denies FB or trauma to the eye. Denies fever, chills, sinus symptoms, sore throat. - History of Current Complaint Chief Complaint: UCEye Stated Complaint: EYE COMPLAINT Hx Obtained From: Patient Onset/Duration: Sudden Onset Severity Initially: Mild Severity Currently: Mild Pain Intensity: 4 - Allergies/Home Medications Allergies/Adverse Reactions: Allergies Allergy/AdvReac Type Severity Reaction Status Date / Time No Known Allergies Allergy Verified 05/13/19 09:32 PMH/Surg Hx/FS Hx/Imm Hx - Additional Past Medical History Additional PMH: None - Surgical History Surgical History: Yes Surgery Procedure, Year, and Place: removal of 2 melanomas. right leg surgery ( shattered femur and hip) W/ [facility] (HIP TO KNEE). HERNIA REPAIR - right - Family History Known Family History: Negative: Hypertension - Social History Occupation: Student Lives: With Family Alcohol Use: Occasionally Alcohol Amount: twice a week - 6-12 beers Substance Use Type: None Smoking Status (MU): Current Some Day Smoker Type: Cigarettes Amount Used/How Often: 1 cig Length of Time of Smoking/Using Tobacco: 8 years Have You Smoked in the Last Year: Yes Household Exposure Type: Cigarettes Review of Systems All Other Systems Reviewed And Are Negative: No Constitutional: Positive: Negative Skin: Positive: Negative Eyes: Positive: Drainage, Eye Redness ENT: Positive: Negative Respiratory: Positive: Negative Cardiovascular: Positive: Negative Gastrointestinal: Positive: Negative Neurological: Positive: Negative Psychological: Positive: Negative Physical Exam - Summary Physical Exam Summary: GENERAL: WDWN. No pain distress. SKIN: No rashes, sores, lesions, or open wounds. HEENT: Head: AT/NC Eyes: EOM intact. PERRLA. RIGHT EYE: Moderate scleral injection. Conjunctiva with moderate erythema and inflammation. Mild yellow discharge. Mild eyelid edema. Nose: NTTP maxillary and frontal sinus. NECK: Supple. Nontender. No lymphadenopathy. CHEST: No accessory muscle use. Breathing comfortably and in no distress. CV: Pulses intact. Cap refill <2seconds NEURO: Alert. PSYCH: Age appropriate behavior. Triage Information Reviewed: Yes Vital Signs: Initial Vital Signs Temp 98.1 F 05/13/19 09:28 Pulse 77 05/13/19 09:28 Resp 18 05/13/19 09:28 BP 105/55 05/13/19 09:28 Pulse Ox 100 05/13/19 09:28 Vital Signs Reviewed: Yes Eye Complaint Course/Dx - Course Course Of Treatment: Conjunctivitis - Differential Dx/Diagnosis Provider Diagnosis: Conjunctivitis Discharge ED - Sign-Out/Discharge Documenting (check all that apply): Patient Departure All imaging exams completed and their final reports reviewed: No Studies - Discharge Plan Condition: Stable Disposition: HOME Prescriptions: Ofloxacin 0.3% (Eye Drop) [Ocuflox OPTH 0.3% (Eye Drop)] 1 drop RIGHT EYE QID 7 Days #1 btl Patient Education Materials: Conjunctivitis (ED) Forms: *School Release Referrals: Gerber Leong MD [Primary Care Provider] - Additional Instructions: If you develop a fever, shortness of breath, chest pain, new or worsening symptoms - please call your PCP or go to the ED immediately. - Billing Disposition and Condition Condition: STABLE Disposition: Home
== END 2019-05-13 10:24 | disposition home or self-care (01) ==
LOC: UCEAST 09:18
DX: H10.9 Unspecified conjunctivitis (principal); F17.210 Nicotine dependence, cigarettes, uncomplicated
CPT/HCPCS: 99212; G0463

== ENCOUNTER 2019-05-16 15:14 | Emergency (ER) | payer OTHER ==
[2019-05-16 15:40] VITALS: BP 124/79
[2019-05-16] MEDS ORDERED: Tetracaine 0.5% OPTH.SOL 4 ML* 1 DROP BTL RIGHT EYE ONE (15:52)
[2019-05-16] MEDS ORDERED: Fluorescein Sodium TOPICAL* 1 MG TEST STRIP OPHTHALMIC ONE (15:53)
--- NOTE | 2019-05-16 15:58 | UC ---
Eye Complaint HPI - HPI Summary HPI Summary: 3 DAYS AGO AND DIAGNOSED WITH RIGHT EYE CONJUNCTIVITIS. TREATED WITH OFLOXACIN EYEDROPS WHICH SHE STATES ARE NOT HELPING. RIGHT EYE FEELS WORSE. COPIOUS TEARING AND PURULENT DISCHARGE. UNABLE TO KEEP HIS EYE OPEN. - History of Current Complaint Chief Complaint: UCEye Stated Complaint: EYE IRRITATION Time Seen by Provider: 05/16/19 15:32 Hx Obtained From: Patient Onset/Duration: Gradual Onset, Lasting Days, Still Present Timing: Constant Severity Initially: Moderate Severity Currently: Moderate Pain Intensity: 5 Pain Scale Used: 0-10 Numeric Aggravating Factor(s): Nothing Alleviating Factor(s): Nothing Associated Signs And Symptoms: Positive: Drainage (Clear) - Allergies/Home Medications Allergies/Adverse Reactions: Allergies Allergy/AdvReac Type Severity Reaction Status Date / Time No Known Allergies Allergy Verified 05/16/19 15:40 PMH/Surg Hx/FS Hx/Imm Hx Cardiovascular History: Hypertension Other Cancer History: MELANOMA - Surgical History Surgical History: Yes Surgery Procedure, Year, and Place: removal of 2 melanomas. right leg surgery ( shattered femur and hip) W/ [facility] (HIP TO KNEE). HERNIA REPAIR - right - Family History Known Family History: Negative: Hypertension - Social History Alcohol Use: Occasionally Alcohol Amount: twice a week - 6-12 beers Substance Use Type: None Smoking Status (MU): Current Some Day Smoker Type: Cigarettes Amount Used/How Often: 1 cig Length of Time of Smoking/Using Tobacco: 8 years Have You Smoked in the Last Year: Yes Household Exposure Type: Cigarettes Review of Systems All Other Systems Reviewed And Are Negative: Yes Constitutional: Positive: Negative Skin: Positive: Negative Eyes: Positive: Blurred Vision, Drainage, Eye Redness Respiratory: Positive: Negative Cardiovascular: Positive: Negative Gastrointestinal: Positive: Negative Physical Exam Triage Information Reviewed: Yes Appearance: Well-Nourished, Pain Distress - MOD PAIN RIGHT EYE Vital Signs: Initial Vital Signs Temp 98.3 F 05/16/19 15:37 Pulse 83 05/16/19 15:37 Resp 16 05/16/19 15:37 BP 124/79 05/16/19 15:37 Pulse Ox 98 05/16/19 15:37 Vital Signs Reviewed: Yes Eyes: Positive: Conjunctiva Inflamed - RIGHT, Discharge - TEARING RIGHT EYE. NO FB. NO CORNEAL ABRASION SEEN WITH FLUORESCEIN. SCLERAL INJECTION AND MILD CHEMOSIS. PERRL, EOMI ENT: Positive: Hearing grossly normal Neck: Positive: Supple Respiratory: Positive: No respiratory distress, No accessory muscle use Cardiovascular: Positive: Pulses Normal Abdomen Description: Positive: Soft Musculoskeletal: Positive: No Edema Neurological: Positive: Alert Psychological: Positive: Age Appropriate Behavior Skin: Negative: Rashes Eye Complaint Course/Dx - Course Course Of Treatment: NO FOREIGN BODY OR CORNEAL ABRASION SEEN ON EXAM TODAY. PATIENT WITH MILD CHEMOSIS OF THE RIGHT EYE AND SIGNIFICANT SCLERAL INJECTION/ERYTHEMA. STOP OFLOXACIN EYEDROPS. WILL GIVE ERYTHROMYCIN OINTMENT TO USE 4 TIMES DAILY AND ORAL AMOXICILLIN. PATIENT IS TO SEE AN INFORMATION SYSTEMS OPERATOR. THERE ARE NONE AVAILABLE ON THE WEEKEND HE WILL EITHER CHOOSE TO GO TO [place] OR WAIT UNTIL THE MEDICAL OFFICES OPEN THIS WEEK. - Differential Dx/Diagnosis Provider Diagnosis: Chemosis of right conjunctiva Discharge ED - Sign-Out/Discharge Documenting (check all that apply): Patient Departure All imaging exams completed and their final reports reviewed: No Studies - Discharge Plan Condition: Stable Disposition: HOME Prescriptions: Amoxicillin PO (*) [Amoxicillin 500 MG CAP*] 1,000 mg PO Q12H #28 cap Erythromycin OPHTH.OINT* [Ilotycin OPHTH.OINT*] 1 applic RIGHT EYE QID #1 tube Patient Education Materials: Conjunctivitis (ED) Forms: *School Release Referrals: Gerber Leong MD [Primary Care Provider] - If Needed Italo Thorpe MD [Medical Doctor] - 1 Day Robert Freire MD [Medical Doctor] - 1 Day Additional Instructions: YOU HAVE FAILED TREATMENT WITH TOPICAL ANTIBIOTIC EYE DROPS. YOU NEED TO BE EVALUATED BY AN EYE DOCTOR. THERE ARE NONE AVAILABLE IN [place] ON THE WEEKEND I STRONGLY RECOMMEND YOU BE SEEN IN [place] FOR A MORE COMPLETE EYE EXAM. TAKE THE ORAL ANTIBIOTIC AND USE THE EYE OINTMENT. STOP THE OFLOXACIN DROPS. - Billing Disposition and Condition Condition: STABLE Disposition: Home
== END 2019-05-16 16:31 | disposition home or self-care (01) ==
LOC: UCEAST 15:14
DX: H11.421 Conjunctival edema, right eye (principal); I10 Essential (primary) hypertension; F17.210 Nicotine dependence, cigarettes, uncomplicated
CPT/HCPCS: 99212; A9270-GY; G0463